=== PATIENT | female | born 1980 | race Caucasian/White ===

== ENCOUNTER 2018-11-16 10:48 | Inpatient (IN) | payer BC ==
[2018-11-16] MEDS ORDERED: Nalbuphine 10 MG/1 ML Vial IVPUSH PRN (11:16)
[2018-11-16] MEDS ORDERED: Sodium Chloride 0.9% 10 ML Syringe FLUSH PRN (11:16)
[2018-11-16] MEDS ORDERED: Oxytocin/Lactated Ringers 10 UNIT/1,000 ML BAG IV SCH ×2 (11:30)
[2018-11-16] MEDS ORDERED: Bupivacaine 0.25% 10 ML SDV ONE (12:00)
[2018-11-16] MEDS ORDERED: fentaNYL 100 MCG/2 ML SDV EPIDUR PRN (12:42)
[2018-11-16] MEDS ORDERED: ePHEDrine 50 MG/ML SDV IVPUSH PRN (12:42)
[2018-11-16] MEDS ORDERED: Ondansetron 4 MG/2 ML SDV IVPUSH PRN (12:42)
--- NOTE | 2018-11-16 12:42 | PCM.PREANE ---
Preanesthetic Assessment - Anesthesia/Transfusion/Family Hx Anesthesia History: Prior Anesthesia Without Reaction Family History of Anesthesia Reaction: No Transfusion History: No Prior Transfusion(s) Intubation History: Unknown - Review of Systems General: No Symptoms Pulmonary: No Symptoms, Cough Cardiovascular: Lightheadedness (with hunger) Gastrointestinal: No Symptoms Neurological: No Symptoms Other: Reports: None, Easy Bruising - Physical Assessment NPO Status Date: 11/16/18 NPO Status Time: 12:30 Pulse: 91 O2 Sat by Pulse Oximetry: 97 Respiratory Rate: 16 Blood Pressure: 130/85 Temperature: 36.3 C Vital Signs: Last Vital Signs Temp 36.3 C 11/16/18 11:30 Pulse 91 11/16/18 11:30 Resp 16 11/16/18 11:30 BP 130/85 11/16/18 11:30 Pulse Ox 97 11/16/18 11:30 Height: 1.6 m Weight: 66.678 kg ASA Class: 2 Mental Status: Alert & Oriented x3 Airway Class: Mallampati = 2 Dentition: Reports: Normal Dentition, Caries Thyro-Mental Finger Breadths: 3 Mouth Opening Finger Breadths: 3 ROM/Head Extension: Full Lungs: Clear to Auscultation, Normal Respiratory Effort Cardiovascular: Regular Rate, Regular Rhythm, No Murmurs - Lab Values: All labs reviewed and noted and within acceptable ranges to proceed with epidural if desired. - Allergies Allergies/Adverse Reactions: Allergies Allergy/AdvReac Type Severity Reaction Status Date / Time No Known Allergies Allergy Verified 06/10/16 16:10 - Anesthesia Plan Pre-Op Medication Ordered: None - Acknowledgements Anesthesia Type Planned: Epidural Pt an Appropriate Candidate for the Planned Anesthesia: Yes Alternatives and Risks of Anesthesia Discussed w Pt/Guardian: Yes Pt/Guardian Understands and Agrees with Anesthesia Plan: Yes PreAnesthesia Questionnaire - Past Health History Medical/Surgical History: Denies Medical/Surgical History - HOME MEDS Home Medications: Home Meds Acetaminophen [Tylenol] 650 mg PO Q4H PRN #0 tablet 06/13/16 [Rx] Docusate Sodium [Colace] 100 mg PO BID PRN #0 cap 06/13/16 [Rx] Ibuprofen [IJD: Ibuprofen] 200 - 600 mg PO Q6H PRN #0 tablet 06/13/16 [Rx] Vit with Ca/FA/Iron [ Plus Iron] 1 each PO DAILY tablet [Rx] Filemon Tan [Tucks] 1 pad TOP ASDIRECTED PRN #0 pad 06/13/16 [Rx] - CURRENT (IN HOUSE) MEDS Current Meds: Current Medications Lactated Ringer's (Ringers, Lactated) 1,000 mls @ 100 mls/hr IV ASDIRECTED ALIS Oxytocin/Lactated Ringer's (Pitocin In Lr 10 Units/1,000 Ml) 10 unit in 1,000 mls @ 12 mls/hr IV TITRATE ALIS; Protocol Oxytocin/Lactated Ringer's (Pitocin In Lr 10 Units/1,000 Ml) 10 unit in 1,000 mls @ 500 mls/hr IV .CONTINUOUS ALIS Nalbuphine HCl (Nubain) 10 mg IVPUSH Q2H PRN PRN Reason: Pain Sodium Chloride (Saline Flush) 10 ml FLUSH ASDIRECTED PRN PRN Reason: Keep Vein Open
[2018-11-16] MEDS ORDERED: Phenylephrine 1 MG in Sodium Chloride 0.9% 10 ML IV SCH (12:45)
[2018-11-16] MEDS ORDERED: Bupivacaine/fentaNYL/NS 100 ML Bag EPIDUR SCH (12:45)
[2018-11-16] MEDS: Lactated Ringers 1,000 ML IV SCH ×2 (14:12→21:20)
--- NOTE | 2018-11-16 15:39 | PCM.LDHP ---
L&D History of Present Illness - General Date of Service: 11/16/18 Admit Problem/Dx: Patient Status Order with Admit Dx/Problem 11/16/18 11:16 Patient Status [ADT] Routine Admission Diagnosis/Problem Admission Diagnosis/Problem 11/16/18 15:26 Najma is a 38-year-old 3 para 2001 white female who was admitted in early labor. She has had cervical change from 2 cm to 3+ centimeters, 95% effacement, 0 station, anterior placement and soft consistency. She is chatnal every 3-5 minutes and contractions are moderate. Source of Information: Patient History Limitations: Reports: No Limitations - History of Present Illness Introduction:: Najma is a 38-year-old 3 para 2001 white female who was admitted in early labor. She has had cervical change from 2 cm to 3+ centimeters, 95% effacement, 0 station, anterior placement and soft consistency. She is chantal every 3-5 minutes and contractions are moderate.Her TOMER is 2018 placed at 39-0/7 weeks. TOMER is determined by certain last menstrual which started on 02/16/2018 and is supported by 3 ultrasounds done on 05/02/2018, 2018 and 08/14/2018. Patient was in for routine visit this morning but was noting contractions. She is monitored for short period time and had 3 contractions in a 20 minute period the NST was reactive and the contraction stress test was negative. She was sent to labor and delivery with above-noted cervical change and is admitted in early labor. Artificial rupture membranes augmentation was undertaken and clear fluid resulted. 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 She is attempting a trial labor after section for a vaginal after section. First section was done for breech presentation. She has had a successful since that time with her second . Her last menstrual was 02/16/2018 which was relatively certain and she is not using any control to time conception. She has monthly cycles. Her hCG was positive on 03/16/2018. Pregnancies are as follows: 1. Her first ended with a delivery of a viable, 6 lbs. 3 oz. male delivered by section for breech presentation. The child's name is Migel 2. Second delivered on 06/11/2016 at 39-6/7 weeks gestational age after 10-1/2 hours of labor. Male infant weighing 6 lbs. 10 oz. born via normal spontaneous vaginal deliveryVBAC. Patient had epidural for this delivery. Child' s name is Felix. Clinical JUICE STANDARDIZER course: Patient had her first visit on 05/02/2018 at 10 -5/7 weeks gestational age. Ultrasound at that time was consistent with dates. She had regular visits and had weight gain from 121-146 pounds. Her vital signs were stable throughout the course. Her fundal height growth was appropriate. The patient had an abnormal 1 hour GTT at 146 and was evaluated with a 3 hour glucose tolerance test which was also abnormal. Patient was started on gestational diabetic diet and has had excellent blood sugars on diet alone. Patient declined flu shot. She desires epidural in labor and delivery. Her [place] depression screening on 07/25/2018 was 07/05. She is group B strep negative. [place] testing was negative. She had RhoGAM given on . Laboratory testing and shows blood to be O- with a negative MRI screening. She did have RhoGAM at the end of second trimester. Her first hemoglobin is 13.5 g/dL. Platelets were 200,000. She is rubella immune. RPR is nonreactive. Hepatitis B surface antigen and HIV assays were both negative. Chlamydia and gonorrhea assays were both negative. Second trimester laboratory testing showed 12.4 g/dL and 5000. One-hour GTT was 146. Platelet count was redone on 10/25/2018 and that was 170,000. Her group B strep screen was negative. Third trimester RPR was nonreactive. Allergies none Medications: 1. vitamins 1 daily Past medical history: 1. Normal spontaneous vaginal delivery 2016 2. Rh- blood type (O-) 3. Gestational diabetes. Past surgical history: 1. Primary section done 12/06/2012 2. Eye surgery 2005 Family history: Mother is alive with adult onset diabetes mellitus. Father is . 3 sisters and 2 brothers alive and well. Maternal grandmother is secondary to Alzheimer's. Maternal grandfather causes unknown. Paternal grandmother and paternal grandfather -cause unknown. No , anesthesia, bleeding or blood clotting problems noted in the family. Social history: Patient is . 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 She lives in [place], [place]. She is not using significant most alcohol, drugs or tobacco. is Abisai Davila. He is a physical therapist. Review of systems: In general patient has no complaints. Skin: Negative Lungs: No infectious symptoms or shortness of breath Cardiovascular: No chest pain or exercise intolerance Breasts: No lumps, changes in size, pain, dimpling, discharge or axillary or supraclavicular concerns. GI: Negative : Negative Musculoskeletal: Negative Neurological: Negative Physical exam: On last evaluation in clinic blood pressure was 134/88. Weight was 146 pounds. First weight was 121 pounds. heart rate was 129. Patient's height is 5 feet 3. [place] BMI was 20.4. In general the patient is well-developed, well-nourished, pleasant female of stated age in no acute distress. Skin is warm dry without lesions. HEENT, neck and back within normal limits. Lungs are clear with good breath sounds in all lung dickson. Cardiovascular exam shows regular and rhythm without murmurs. Breast exam is deferred having that done at first visit and found to be normal. Patient does plan to breast-feed Abdomen is gravid with with fundal height of 36 and 5 cm. Baby in vertex presentation. Gentle exam shows cervix as described above. Extremities and neurological exam are grossly within normal limits. Pain Score: 5 - Related Data Allergies/Adverse Reactions: Allergies Allergy/AdvReac Type Severity Reaction Status Date / Time No Known Allergies Allergy Verified 06/10/16 16:10 Home Medications: Home Meds Acetaminophen [Tylenol] 650 mg PO Q4H PRN #0 tablet 06/13/16 [Rx] Docusate Sodium [Colace] 100 mg PO BID PRN #0 cap 06/13/16 [Rx] Ibuprofen [IJD: Ibuprofen] 200 - 600 mg PO Q6H PRN #0 tablet 06/13/16 [Rx] Vit with Ca/FA/Iron [ Plus Iron] 1 each PO DAILY tablet [Rx] Filemon Tan [Tucks] 1 pad TOP ASDIRECTED PRN #0 pad 06/13/16 [Rx] Past Medical History - Past Health History Medical/Surgical History: Denies Medical/Surgical History 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 STANDARDIZER History: Reports: Social & Family History - Family History Family Medical History: Noncontributory - Tobacco Use Smoking Status *Q: Never Smoker Second Hand Smoke Exposure: No - Caffeine Use Caffeine Use: Reports: Soda - Recreational Drug Use Recreational Drug Use: No H&P Review of Systems - Review of Systems: Review Of Systems: See Below L&D Exam - Exam Exam: See Below - Vital Signs Vital Signs: Last Vital Signs Temp 36.3 C 11/16/18 13:04 Pulse 91 11/16/18 13:04 Resp 16 11/16/18 13:04 BP 130/85 11/16/18 13:04 Pulse Ox 97 11/16/18 13:04 Weight: 66.678 kg - Patient Data Lab Results Last 24 hrs: Laboratory Results - last 24 hr 11/16/18 Range/Units 12:05 WBC 10.38 H (3.98-10.04) K/mm3 RBC 4.05 (3.98-5.22) M/mm3 Hgb 13.1 (11.2-15.7) gm/L Hct 37.8 (34.1-44.9) % MCV 93.3 (79.4-94.8) fl MCH 32.3 H (25.6-32.2) pg MCHC 34.7 (32.2-35.5) g/dl RDW Std Deviation 42.6 (36.4-46.3) fL Plt Count 165 L (182-369) K/mm3 MPV 10.2 (9.4-12.3) fl Neut % (Auto) 84.1 H (34.0-71.1) % Lymph % (Auto) 7.7 L (19.3-51.7) % [place] % (Auto) 6.7 (4.7-12.5) % Eos % (Auto) 0.9 (0.7-5.8) Baso % (Auto) 0.2 (0.1-1.2) % Neut # (Auto) 8.73 H (1.56-6.13) K/mm3 Lymph # (Auto) 0.80 L (1.18-3.74) K/mm3 [place] # (Auto) 0.70 H (0.24-0.36) K/mm3 Eos # (Auto) 0.09 (0.04-0.36) K/mm3 Baso # (Auto) 0.02 (0.01-0.08) K/mm3 Manual Slide Review Normal smear Result Diagrams: 11/16/18 12:05 Problem List Initiated/Reviewed/Updated: Yes Orders Last 24hrs: Active Orders 24 hr Category Date Time Status Patient Status [ADT] Routine ADT 11/16/18 11:16 Active Activity as Tolerated [RC] PFP Care 11/16/18 11:16 Active Communication Order [RC] ASDIRECTED Care 11/16/18 11:16 Active Heart Tones [RC] ASDIRECTED Care 11/16/18 11:17 Active Non Stress Test [RC] PER UNIT ROUTINE Care 11/16/18 11:16 Active Notify Provider [RC] ASDIRECTED Care 11/16/18 12:42 Active Notify Provider [RC] PFP Care 11/16/18 11:16 Active Notify Provider [RC] PRN Care 11/16/18 11:16 Active Oxygen Therapy [RC] ASDIRECTED Care 11/16/18 12:42 Active Peripheral IV Care [RC] . DIRECTED Care 11/16/18 11:17 Active Pulse Oximetry [RC] ASDIRECTED Care 11/16/18 12:42 Active Vital Signs [RC] PER UNIT ROUTINE Care 11/16/18 11:16 Active Regular Diet [DIET] Diet 11/16/18 Lunch Active RAPID PLASMA REAGIN,RPR [CHEM] Routine Lab 11/16/18 12:05 Received Bupivacaine/fentaNYL/NS [fentaNYL/Bupivacaine/NS 2 MCG- Med 11/16/18 12:45 Active 0.125% 100 ML] 100 ml EPIDUR ASDIRECTED Lactated Ringers [Ringers, Lactated] 1,000 ml Med 11/16/18 11:30 Active IV ASDIRECTED Nalbuphine [Nubain] Med 11/16/18 11:16 Active 10 mg IVPUSH Q2H PRN Ondansetron [Zofran] Med 11/16/18 12:42 Active 4 mg IVPUSH ONETIME PRN Oxytocin/Lactated Ringers [Pitocin in LR 10 Units/1,000 Med 11/16/18 11:30 Active ML] 10 unit in 1,000 ml IV .CONTINUOUS Oxytocin/Lactated Ringers [Pitocin in LR 10 Units/1,000 Med 11/16/18 11:30 Active ML] 10 unit in 1,000 ml IV TITRATE Phenylephrine [Shane-Synephrine] 1 mg Med 11/16/18 12:45 Active Sodium Chloride 0.9% [Normal Saline] 10 ml IV TITRATE Sodium Chloride 0.9% [Saline Flush] Med 11/16/18 11:16 Active 10 ml FLUSH ASDIRECTED PRN ePHEDrine [ePHEDrine sulfate] Med 11/16/18 12:42 Active 5 mg IVPUSH ASDIRECTED PRN fentaNYL [Sublimaze] Med 11/16/18 12:42 Active 100 mcg EPIDUR Q3H PRN Electronic Heart Tones Ext w TOCO [WOMSER] Oth 11/16/18 11:16 Ordered Routine Electronic Heart Tones Internal [WOMSER] Per Unit Ot 11/16/18 11:16 Ordered Routine Peripheral IV Insertion Adult [OM.PC] Routine Ot 11/16/18 11:16 Ordered Resuscitation Status Routine Resus Stat 11/16/18 11:16 Ordered Medication Orders Ephedrine Sulfate (Ephedrine Sulfate) 5 mg IVPUSH ASDIRECTED PRN PRN Reason: Hypotension Fentanyl (Sublimaze) 100 mcg EPIDUR Q3H PRN PRN Reason: Pain Last Admin: 11/16/18 14:32 Dose: 100 mcg Fentanyl/Bupivacaine HCl (Fentanyl/Bupivacaine/Ns 2 Mcg-0.125% 100 Ml) 100 ml EPIDUR ASDIRECTED ALIS Last Admin: 11/16/18 14:32 Dose: 100 ml Lactated Ringer's (Ringers, Lactated) 1,000 mls @ 100 mls/hr IV ASDIRECTED ALIS Last Admin: 11/16/18 14:12 Dose: 100 mls/hr Oxytocin/Lactated Ringer's (Pitocin In Lr 10 Units/1,000 Ml) 10 unit in 1,000 mls @ 12 mls/hr IV TITRATE ALIS; Protocol Oxytocin/Lactated Ringer's (Pitocin In Lr 10 Units/1,000 Ml) 10 unit in 1,000 mls @ 500 mls/hr IV .CONTINUOUS ALIS Phenylephrine HCl 1 mg/ Sodium (Chloride) 10.1 mls @ 1 mls/sec IV TITRATE ALIS; Protocol Nalbuphine HCl (Nubain) 10 mg IVPUSH Q2H PRN PRN Reason: Pain Ondansetron HCl (Zofran) 4 mg IVPUSH ONETIME PRN PRN Reason: Nausea/Vomiting Sodium Chloride (Saline Flush) 10 ml FLUSH ASDIRECTED PRN PRN Reason: Keep Vein Open Assessment/Plan Comment:: 1. 39-0/7 week intrauterine admitted in early labor with progressive cervical dilation 2. History of previous section with first for breech presentation. Patient has successfully VBACed a 6 lbs. 10 oz. . 3. RPR is nonreactive 4. Rubella titer shows immunity 5. Patient desires epidural in labor and delivery 6. Group B strep screen negative 7. Patient plans to breast-feed. Plan: 1. Anticipate normal spontaneous vaginal delivery/-the procedure versus was discussed in detail. The risks benefits possible complications and follow-up are discussed and she appears to understand and wishes to proceed. 2. labs to be obtained upon admission 3. Consents for trial of labor after section for vaginal after section and for a repeat section have been signed. 4. Surgery and anesthesia department is informed of patient's presence in labor and delivery 5. IV access 6. Near continuous monitoring while in labor.
--- NOTE | 2018-11-16 22:32 | PCM.SN ---
- Free Text/Narrative Note: Najma is a 38-year-old 3 now para 3003 white female at 39-0/7 weeks gestational age with an TOMER of 11/23/2018 who was admitted earlier today 2018 in early labor. She progressed slowly to about 6 cm and then rapidly to complete cervical dilation. She had an epidural for labor analgesia. She was noted be complete at approximately 2130 hrs. At 2202 hrs. on 11/16/2018 she delivered a viable tineo female infant in a left occiput anterior position. Using nuchal cord 2 which was loose and was reduced over the baby's head. Apgars were 6 and 9. Weight was 3330 g (7 lbs. 5 oz.). Length was 19.75 inches. The baby was placed on mom's abdomen. Pitocin was increased to 500 mL an hour to facilitate increase uterine tone and decrease likelihood of bleeding. Cord was allowed to pulsate for short period time but then was clamped and cut by the baby's father. Cord bloods obtained. Patient had a small second-degree perineal laceration which was repaired in a routine fashion with 3-0 Monocryl suture. Epidural analgesia was used for laceration repair anesthesia. The placenta delivered in a [place] presentation, appeared complete and intact and was discarded per patient desire. Asthma blood loss was 100 mL. Patient plans to breast-feed. Condition: Good
[2018-11-17] MEDS ORDERED: Benzocaine/Menthol 20%-0.5% Spray 56 GM Canister TOP PRN (00:23)
[2018-11-17] MEDS ORDERED: Lanolin 100% Cream 7 GM Tube TOP PRN (00:23)
[2018-11-17] MEDS ORDERED: Acetaminophen 325 MG Tab PO PRN (00:23)
[2018-11-17] MEDS ORDERED: Witch Hazel Medicated Pads 40/Jar TOP PRN (00:23)
[2018-11-17] MEDS ORDERED: Docusate Sodium 100 MG Cap PO PRN (00:23)
--- NOTE | 2018-11-17 08:38 | PCM.SN ---
- Free Text/Narrative Note: note: Patient is doing well in the period. Minimal lochia, voiding well, ambulated without problems. Nursing without concerns. Patient is afebrile, vital signs are stable Abdomen is flat, soft, uterus is below the umbilicus and is firm and nontender. Legs are nontender. Assessment: recovery going well. Plan: Routine care. Patient be discharged home within the next 24- 48 hours.
--- NOTE | 2018-11-17 12:23 | PCM48HPAN ---
Post Anesthesia Note - EVALUATION WITHIN 48HRS OF ANESTHETIC Vital Signs in Normal Range: Yes Patient Participated in Evaluation: Yes Respiratory Function Stable: Yes Airway Patent: Yes Cardiovascular Function Stable: Yes Hydration Status Stable: Yes Pain Control Satisfactory: Yes Nausea and Vomiting Control Satisfactory: Yes Mental Status Recovered: Yes
[2018-11-17] MEDS: Ibuprofen 600 MG Tab PO PRN (15:28)
[2018-11-18] MEDS: Ibuprofen 600 MG Tab PO PRN ×2 (00:42→10:05)
[2018-11-18 08:59] VITALS: BP 110/63
--- NOTE | 2018-11-18 11:20 | PCM.SN ---
- Free Text/Narrative Note: Post Progress Note PPD # 2 Subjective: Doing well overall. Ambulating without difficulty. Lochia minimal. Voiding without difficulty. Tolerating regular diet without nausea or vomiting. Pain controlled with oral medications. Breast-feeding with minimal difficulty. Objective: Vitals: Vital Signs - 24 hr 11/17/18 11/18/18 11/18/18 22:00 03:49 08:53 Temperature 36.8 C 36.2 C 36.0 C Pulse, 97 90 82 Peripheral Respiratory 17 12 15 Rate Blood Pressure 99/60 114/68 110/63 O2 Sat by Pulse 93 L 97 98 Oximetry Physical Exam General: Alert and oriented, no acute distress Lungs: Clear to auscultation bilaterally Heart: Regular rate and rhythm Abdomen: Soft, minimal appropriate tenderness, non-distended, fundus midline, nontender, and at the umbilicus Extremities: No edema Laboratory Results - last 24 hr 11/17/18 Range/Units 12:05 Blood Type O NEGATIVE Gel Antibody Screen Negative Screen 0 ros/5 flds - neg RhIG Candidate? Yes Rhogam Indicated Yes, baby rh unknown H ASSESSMENT: 38-year-old female s/p vaginal delivery after PPD #2, complicated by advanced maternal age with normal [place] genetic testing, Rh- status, history of section and gestational diabetes PLAN: Doing well Breast-feeding with minimal difficulty. Assist as needed Lochia minimal. Continue to monitor for appropriate lochia. Patient with O- blood type and infant with a positive blood type. Patient received RhoGAM on 11/18/2018 Continue routine care Anticipate discharge home today Benji Bruce MD 11:18 AM 11/18/2018
--- NOTE | 2018-11-18 11:30 | PCM.DCSUM1 ---
Discharge Summary - Hospital Course Free Text/Narrative:: Najma is a 38-year-old 3 now para 3003 white female at 39-0/7 weeks gestational age with an TOMER of 11/23/2018 who was admitted earlier today 2018 in early labor. She progressed slowly to about 6 cm and then rapidly to complete cervical dilation. She had an epidural for labor analgesia. She was noted be complete at approximately 2130 hrs. At 2202 hrs. on 11/16/2018 she delivered a viable tineo female infant in a left occiput anterior position. Using nuchal cord 2 which was loose and was reduced over the baby's head. Apgars were 6 and 9. Weight was 3330 g (7 lbs. 5 oz.). Length was 19.75 inches. The baby was placed on mom's abdomen. Pitocin was increased to 500 mL an hour to facilitate increase uterine tone and decrease likelihood of bleeding. Cord was allowed to pulsate for short period time but then was clamped and cut by the baby's father. Cord bloods obtained. Patient had a small second-degree perineal laceration which was repaired in a routine fashion with 3-0 Monocryl suture. Epidural analgesia was used for laceration repair anesthesia. The placenta delivered in a Lemus presentation, appeared complete and intact and was discarded per patient desire. Asthma blood loss was 100 mL. Patient plans to breast-feed. Condition: Good HPI Initial Comments: Najma is a 38-year-old 3 now para 3003 white female at 39-0/7 weeks gestational age with an TOMER of 11/23/2018 who was admitted earlier today 2018 in early labor. She progressed slowly to about 6 cm and then rapidly to complete cervical dilation. She had an epidural for labor analgesia. She was noted be complete at approximately 2130 hrs. At 2202 hrs. on 11/16/2018 she delivered a viable tineo female in a left occiput anterior position. Using nuchal cord 2 which was loose and was reduced over the baby's head. Apgars were 6 and 9. Weight was 3330 g (7 lbs. 5 oz.). Length was 19.75 inches. The baby was placed on mom's abdomen. Pitocin was increased to 500 mL an hour to facilitate increase uterine tone and decrease likelihood of bleeding. Cord was allowed to pulsate for short period time but then was clamped and cut by the baby's father. Cord bloods obtained. Patient had a small second-degree perineal laceration which was repaired in a routine fashion with 3-0 Monocryl suture. Epidural analgesia was used for laceration repair anesthesia. The placenta delivered in a Lemus presentation, appeared complete and intact and was discarded per patient desire. Asthma blood loss was 100 mL. Patient plans to breast-feed. Condition: Good Brief History: Najma is a 38-year-old 3 now para 3003 white female at 39 -0/7 weeks gestational age with an TOMER of 11/23/2018 who was admitted earlier today 11/16/2018 in early labor. She progressed slowly to about 6 cm and then rapidly to complete cervical dilation. She had an epidural for labor analgesia. She was noted be complete at approximately 2130 hrs. At 2202 hrs. on 11/16/2018 she delivered a viable tineo female in a left occiput anterior position. Using nuchal cord 2 which was loose and was reduced over the baby's head. Apgars were 6 and 9. Weight was 3330 g (7 lbs. 5 oz.). Length was 19.75 inches. The baby was placed on mom's abdomen. Pitocin was increased to 500 mL an hour to facilitate increase uterine tone and decrease likelihood of bleeding. Cord was allowed to pulsate for short period time but then was clamped and cut by the baby's father. Cord bloods obtained. Patient had a small second-degree perineal laceration which was repaired in a routine fashion with 3-0 Monocryl suture. Epidural analgesia was used for laceration repair anesthesia. The placenta delivered in a Lemus presentation, appeared complete and intact and was discarded per patient desire. Asthma blood loss was 100 mL. Patient plans to breast-feed. Condition: Good Diagnosis: Stroke: No - Discharge Data Discharge Date: 11/18/18 Discharge Disposition: Home, Self-Care 01 Condition: Good - Discharge Diagnosis/Problem(s) (1) Advanced maternal age in multigravida SNOMED Code(s): 805720770 ICD Code: O09.529 - SUPERVISION OF ELDERLY MULTIGRAVIDA, UNSPECIFIED TRIMESTER Status: Acute Current Visit: Yes (2) White classification A1 gestational diabetes mellitus SNOMED Code(s): 70897108 ICD Code: O24.410 - GESTATIONAL DIABETES MELLITUS IN , DIET CONTROLLED Status: Acute Current Visit: Yes (3) History of delivery affecting SNOMED Code(s): 896153557, 381813587 ICD Code: O34.219 - MATERNAL CARE FOR UNSP TYPE SCAR FROM PREVIOUS DEL Status: Acute Current Visit: Yes (4) Vaginal delivery following previous section, delivered SNOMED Code(s): 989945811 ICD Code: O34.219 - MATERNAL CARE FOR UNSP TYPE SCAR FROM PREVIOUS DEL Status: Acute Current Visit: Yes (5) History of section SNOMED Code(s): 027458311 ICD Code: Z98.891 - HISTORY OF UTERINE SCAR FROM PREVIOUS SURGERY Status: Acute Current Visit: Yes (6) 39 weeks gestation of SNOMED Code(s): 94424505 ICD Code: Z3A.39 - 39 WEEKS GESTATION OF Status: Acute Current Visit: No (7) Second degree laceration of perineum, delivered, current hospitalization SNOMED Code(s): 976880522, 841693139 ICD Code: O70.1 - SECOND DEGREE PERINEAL LACERATION DURING DELIVERY Status : Acute Current Visit: No - Patient Summary/Data Complications: None Consults: None Hospital Course: Najma Davila was admitted for early labor with cervical change from 2 cm to 3 cm with regular contractions every 3-5 minutes. On admission her cervix was dilated to 3 cm. She was GBS negative. She was given pitocin for augmentation. She was given an epidural for anesthesia. She had artificial rupture of membranes with bloodstained fluid. She progressed to complete and began pushing. On 11/16/2018 she had a normal vaginal delivery of a live female infant at 2202. Apgars of 6 and 9. Weight of 3330 g (7 pounds 5.5 ounces). Her course was uneventful. Her pain was well controlled and she had minimal lochia. She was ambulating, tolerating a regular diet and voiding normally. She was breast-feeding with minimal difficulty. She was afebrile and her hematocrit was 37.8 on admission. She desired to be discharged home on the morning of PPD #2. Her blood type is O- and infant had A+ blood type. She was given RhoGAM on 11/18/2018 prior to discharge. - Patient Instructions Diet: Regular Diet as Tolerated Activity: Apply Ice, As Tolerated Activity, Other: Nothing in the vagina for 6 weeks Driving: May Drive Today Showering/Bathing: May Shower Notify Provider of: Fever, Increased Pain, Swelling and Redness, Drainage, Nausea and/or Vomiting Other/Special Instructions: Please contact your physician's office if you have heavy vaginal bleeding enough to soak a pad in less than an hour for several hours. Monitor for any signs of an infection in the breasts with severe pain or redness of the breast. - Discharge Plan *PRESCRIPTION DRUG MONITORING PROGRAM REVIEWED*: Not Applicable *COPY OF PRESCRIPTION DRUG MONITORING REPORT IN PATIENT TRAMAINE: Not Applicable Home Medications: Home Meds Vit with Ca/FA/Iron [ Plus Iron] 1 each PO DAILY tablet [Rx] Acetaminophen [Tylenol] 650 mg PO Q6H PRN tablet 11/18/18 [Rx] Benzocaine/Menthol [Dermoplast Pain Relief [place]] 1 spray TOP ASDIRECTED PRN canister 11/18/18 [Rx] Docusate Sodium [Colace] 100 mg PO BID PRN cap 11/18/18 [Rx] Ibuprofen [Motrin] 600 mg PO Q6H PRN tablet 11/18/18 [Rx] Lanolin [Lansinoh HPA] 1 applic TOP ASDIRECTED PRN tube 11/18/18 [Rx] Witch Britney [Tucks] 1 pad TOP ASDIRECTED PRN pad 11/18/18 [Rx] Patient Handouts: and Mastitis, Vaginal Delivery, Care After, Breast Pumping Tips, [id number], Care of a Perineal Tear Referrals: Remy Wright MD [Primary Care Provider] - (Follow-up in 2-3 weeks for routine appointment or earlier as needed.) - Discharge Summary/Plan Comment DC Time >30 min.: No - Patient Data Vitals - Most Recent: Last Vital Signs Temp 36.0 C 11/18/18 08:53 Pulse 82 11/18/18 08:53 Resp 15 11/18/18 08:53 BP 110/63 11/18/18 08:53 Pulse Ox 98 11/18/18 08:53 Weight - Most Recent: 66.678 kg I&O - Last 24 hours: Intake & Output 11/17/18 11/18/18 11/18/18 22:59 06:59 14:59 Intake Total 500 2 120 Balance 500 2 120 Lab Results - Last 24 hrs: Laboratory Results - last 24 hr 11/17/18 Range/Units 12:05 Blood Type O NEGATIVE Gel Antibody Screen Negative Screen 0 ros/5 flds - neg RhIG Candidate? Yes Rhogam Indicated Yes, baby rh unknown H Med Orders - Current: Current Medications Acetaminophen (Tylenol) 650 mg PO Q4H PRN PRN Reason: mild pain or fever Benzocaine/Menthol (Dermoplast Pain Relief [place]) 0 gm TOP ASDIRECTED PRN PRN Reason: Perineal Comfort Measure Docusate Sodium (Colace) 100 mg PO BID PRN PRN Reason: Constipation Emollient Ointment (Lansinoh Hpa) 0 gm TOP ASDIRECTED PRN PRN Reason: Sore Nipples Ibuprofen (Motrin) 600 mg PO Q4H PRN PRN Reason: Mild pain or fever Last Admin: 11/18/18 10:05 Dose: 600 mg Witch Britney (Tucks) 1 pad TOP ASDIRECTED PRN PRN Reason: Pain Discontinued Medications Bupivacaine HCl (Sensorcaine-Mpf 0.25%) 10 ml .ROUTE .STK-MED ONE Stop: 11/16/18 12:01 Ephedrine Sulfate (Ephedrine Sulfate) 5 mg IVPUSH ASDIRECTED PRN PRN Reason: Hypotension Fentanyl (Sublimaze) 100 mcg EPIDUR Q3H PRN PRN Reason: Pain Last Admin: 11/16/18 14:32 Dose: 100 mcg Fentanyl/Bupivacaine HCl (Fentanyl/Bupivacaine/Ns 2 Mcg-0.125% 100 Ml) 100 ml EPIDUR ASDIRECTED ALIS Last Admin: 11/16/18 14:32 Dose: 100 ml Lactated Ringer's (Ringers, Lactated) 1,000 mls @ 100 mls/hr IV ASDIRECTED ALIS Last Admin: 11/16/18 21:20 Dose: 100 mls/hr Oxytocin/Lactated Ringer's (Pitocin In Lr 10 Units/1,000 Ml) 10 unit in 1,000 mls @ 12 mls/hr IV TITRATE ALIS; Protocol Last Titration: 11/16/18 18:59 Dose: 4 munits/min, 24 mls/hr Oxytocin/Lactated Ringer's (Pitocin In Lr 10 Units/1,000 Ml) 10 unit in 1,000 mls @ 500 mls/hr IV .CONTINUOUS ALIS Phenylephrine HCl 1 mg/ Sodium (Chloride) 10.1 mls @ 1 mls/sec IV TITRATE ALIS; Protocol Nalbuphine HCl (Nubain) 10 mg IVPUSH Q2H PRN PRN Reason: Pain Ondansetron HCl (Zofran) 4 mg IVPUSH ONETIME PRN PRN Reason: Nausea/Vomiting Sodium Chloride (Saline Flush) 10 ml FLUSH ASDIRECTED PRN PRN Reason: Keep Vein Open
== END 2018-11-18 14:30 | disposition home or self-care (01) | DRG 560 ==
LOC: JD.OB 10:48 → OBSVTOIN 22:02 → JD.OB 22:03
PROVIDERS: ADMIT Obstetrics & Gynecology; ATTEND Obstetrics & Gynecology
PROC: 10E0XZZ Delivery of Products of Conception, External Approach (ICD-10-PCS; principal; 2018-11-16)
PROC: 0KQM0ZZ Repair Perineum Muscle, Open Approach (ICD-10-PCS; 2018-11-16)
PROC: 10907ZC Drainage of Amniotic Fluid, Therapeutic from Products of Conception, Via Natural or Artificial Opening (ICD-10-PCS; 2018-11-16)
DX: O24.420 Gestational diabetes mellitus in childbirth, diet controlled (principal); O69.81X0 Labor and delivery complicated by cord around neck, without compression, not applicable or unspecified; O70.1 Second degree perineal laceration during delivery; Z3A.39 39 weeks gestation of pregnancy; Z37.0 Single live birth
CPT/HCPCS: 36415; 51702; 59025; 59409; 85025; 85461; 86592; 86850; 86900; 86901; A9270-GY; J2590; J2790; J3010; J3490; J7120